=== PATIENT | female | born 1965 | race Caucasian/White ===

== ENCOUNTER → 2018-08-23 | Outpatient (CLI) | payer MEDICAID ==
[2018-08-23 08:14] VITALS: BP 142/69; PULSE 120; TEMP 97.3; BMI 23.6
--- NOTE | 2018-08-23 09:02 | P.HPOB ---
History of Present Illness H&P Date: 08/23/18 Chief Complaint: The patient is here for her routine gynecologic exam and mammogram. This is a 53-year-old with an LMP of October 2017. The patient's 's status post vasectomy. The patient is here to establish with this office. It has been about 2 years since her last pelvic exam. The patient states her periods have become more infrequent over the last 2 years. They were regular up until 2 years ago. She then had one year of menses around every other month. She has not had a menstrual period for about 10 months. She does have hot flashes but they are mild and not very bothersome. She is otherwise without complaints. Review of Systems The patient's weight has been stable over the last year. She denies respiratory , cardiac, or G.I. problems. 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 She does have a history of a small uterine fibroid. 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 - Past Family History Mother Family Medical History: Hypertension Additional Family Medical History / Comment(s): Arthritis Medications and Allergies Home Medications Medication Instructions Recorded Confirmed Type Fexofenadine HCl [Amita Allergy] PO PRN 08/23/18 History Hydrochlorothiazide 0.5 tablet PO DAILY 08/23/18 08/23/18 History Multivitamin [Multivitamins Adult tab PO DAILY 08/23/18 History Gummies] Allergies Allergy/AdvReac Type Severity Reaction Status Date / Time No Known Allergies Allergy Unverified 08/23/18 08:09 Exam Vital Signs Temp Pulse BP 08/23/18 08:09 97.3 F L 120 H 142/69 Intake and Output 08/22/18 08/23/18 08/23/18 22:59 06:59 14:59 Other: Weight 66.224 kg Height 5'6", BMI 23.6. This is a well-developed well-nourished white female who is alert and oriented times 3 in no acute distress. HEENT: Within normal limits. NECK: Supple without mass or thyromegaly. CHEST AND LUNGS: Clear to auscultation. HEART: Regular rate and rhythm. BREASTS: Are without mass or discharge. AXILLARY EXAM: Negative for adenopathy. BACK: Negative for CVA tenderness. ABDOMEN: Soft, nontender, without palpable masses. PELVIC EXAM: Normal external genitalia with minimal atrophy. Cervix and vagina appear normal with mild atrophy. The cervix is slightly stenotic secondary to atrophy. There is no unusual discharge. There is no evidence of prolapse. The uterus is midposition, nongravid size and nontender. There are no palpable adnexal masses or tenderness. RECTAL EXAM: rectovaginal exam is negative for mass or tenderness and is negative for occult blood. EXTREMITIES: Nontender. IMPRESSION: 1. 53-year-old perimenopausal female with 10 months of amenorrhea and mild hot flashes. 2. History of small uterine fibroid which is asymptomatic and not palpable on bimanual examination. 3. Mild blood pressure elevation with history of chronic hypertension. PLAN: 1. Pap smear was performed. 2. Self breast awareness was discussed with the patient. 3. Screening mammogram will be done today. 4. Osteoporosis prevention was discussed. 5. I have recommended screening colonoscopy based on her age. She will talk with Dr. Turcios about this. 6. She will call if she has menstrual problems or vaginal bleeding after 12 months of amenorrhea. 7. She will return in one year.
--- NOTE | 2018-08-24 11:34 | MM ---
Reason for exam: screening (asymptomatic). Last mammogram was performed 3 years and 2 months ago. History: Took hormonal contraceptives for 2 years. Physical Findings: A clinical breast exam by your physician is recommended on an annual basis and results should be correlated with mammographic findings. MG Screening Mammo w CAD Bilateral CC and MLO view(s) were taken. Prior study comparison: June 18, 2015, bilateral MG screening mammo w CAD. May 29, 2013, bilateral digital screening mammo w/CAD. The breast tissue is heterogeneously dense. This may lower the sensitivity of mammography. No significant changes when compared with prior studies. ASSESSMENT: Negative, BI-RAD 1 RECOMMENDATION: Routine screening mammogram of both breasts in 1 year.
== END | disposition home or self-care (01) ==
LOC: WWCWWP 07:52
PROVIDERS: ATTEND Obstetrics & Gynecology
DX: Z12.31 Encounter for screening mammogram for malignant neoplasm of breast (principal)
CPT/HCPCS: 77067

== ENCOUNTER → 2020-12-17 | Outpatient (CLI) | payer BC ==
[2020-12-17 08:20] VITALS: BP 159/87; PULSE 112; RESP 18; TEMP 98.5
--- NOTE | 2020-12-17 08:52 | P.HPOB ---
History of Present Illness H&P Date: 12/17/20 Chief Complaint: The patient is here for her routine gynecologic exam and ma mmogram. This is a 55-year-old with an LMP of 2017. The patient is without gynecologic complaints and denies any postmenopausal bleeding. She has occasional feels warm but denies any significant hot flashes. Review of Systems The patient has gained 4 pounds over the last 2 years. She denies respiratory, cardiac, or G.I. problems. 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 She does have a history of a small uterine fibroid. History of Any Multi-Drug Resistant Organisms: None Reported Past Surgical History: No Surgical Hx Reported Past Psychological History: Anxiety Smoking Status: Never smoker Past Alcohol Use History: Rare (6 per year) Past Drug Use History: None Reported Additional History: She has been since 1988 and currently does not work outside the home, but does watch some of her grandchildren during the day. - Past Family History Mother Family Medical History: Hypertension Additional Family Medical History / Comment(s): Arthritis Medications and Allergies Home Medications Medication Instructions Recorded Confirmed Type Fexofenadine HCl [Amita Allergy] 1 tab PO DAILY PRN 08/23/18 12/17/20 History Multivitamin [Multivitamins Adult 1 tab PO DAILY 08/23/18 12/17/20 History Gummies] Allergies Allergy/AdvReac Type Severity Reaction Status Date / Time No Known Allergies Allergy Unverified 12/17/20 08:16 Exam Vital Signs Temp Pulse Resp BP Pulse Ox 12/17/20 08:17 98.5 F 112 H 18 159/87 100 Intake and Output 12/16/20 12/17/20 12/17/20 22:59 06:59 14:59 Other: Weight 68.039 kg Height 5 feet 6 inches, weight 150 pounds, BMI 24.2. This is a well-developed well-nourished white female who is alert and oriented times 3 in no acute distress. HEENT: Within normal limits. NECK: Supple without mass or thyromegaly. CHEST AND LUNGS: Clear to auscultation. HEART: Mild tachycardia and regular rhythm. She states she does get nervous with exams. BREASTS: Are without mass or discharge. AXILLARY EXAM: Negative for adenopathy. BACK: Negative for CVA tenderness. ABDOMEN: Soft, nontender, without palpable masses. PELVIC EXAM: Normal external genitalia with minimal atrophy. Cervix and vagina appear normal with minimal atrophy. There is no unusual discharge. There is no evidence of prolapse. The uterus is midposition, multiparous nongravid size and nontender. There are no palpable adnexal masses or tenderness. RECTAL EXAM: Rectovaginal exam is negative for mass or tenderness and is negative for occult blood. EXTREMITIES: Nontender. IMPRESSION: 1. 55-year-old menopausal female with normal gynecologic exam. 2. Elevated blood pressure. The patient states she previously was on a blood pressure medication, but with regular exercise her home blood pressures have been better and she states she discontinued the blood pressure medication. PLAN: 1. Pap smear cotest was performed. 2. Self breast awareness was discussed with the patient. 3. Screening mammogram will be done today. 4. Her elevated blood pressure was discussed. I have stressed the importance of working with her PCP to determine if she should be on a blood pressure medication. She will do home blood pressure monitoring since she does have a blood pressure cuff. She will follow up with her PCP for blood pressure elevations. 5. Screening colonoscopy was recommended. She will do this through her PCP. 6.Osteoporosis prevention was discussed. I have stressed the importance of adequate calcium, vitamin D and regular exercise. Recommended amounts of calcium and vitamin D were also discussed. 7. She was advised to return in one year for her annual well woman exam.
--- NOTE | 2020-12-18 10:39 | MM ---
Reason for exam: screening (asymptomatic). Last mammogram was performed 2 years and 4 months ago. History: Patient is postmenopausal. Took hormonal contraceptives for 2 years. Physical Findings: A clinical breast exam by your physician is recommended on an annual basis and results should be correlated with mammographic findings. MG Screening Mammo w CAD Bilateral CC and MLO view(s) were taken. Prior study comparison: August 23, 2018, bilateral MG screening mammo w CAD. June 18, 2015, bilateral MG screening mammo w CAD. The breast tissue is heterogeneously dense. This may lower the sensitivity of mammography. There is no discrete abnormality. No significant changes when compared with prior studies. ASSESSMENT: Negative, BI-RAD 1 RECOMMENDATION: Routine screening mammogram of both breasts in 1 year.
== END | disposition home or self-care (01) ==
LOC: WWCWWP 08:06
PROVIDERS: ATTEND Obstetrics & Gynecology
DX: Z12.31 Encounter for screening mammogram for malignant neoplasm of breast (principal)
CPT/HCPCS: 77067